=== PATIENT | female | born 1990 | race Caucasian/White ===

== ENCOUNTER 2017-01-15 22:37 | Emergency (ER) | payer OTHER ==
[2017-01-15 23:05] LABS: Hematocrit 44.4 % (37.0-47.0); Hemoglobin 14.2 gm/dL (12.5-16.0); Mean Cell Volume 92.9 fl (78-100); Mean Corpuscular Hemoglobin 29.7 pg (27-31); Mean Platelet Volume 9.7 fl (6.0-9.5); Neutrophil % 65.6 % (42-75.0); Platelet Count 224 K/mm3 (150-450); Red Blood Count 4.78 M/mm3 (4.2-5.4); Red Cell Distribution Width 14.2 % (11.5-14.0); White Blood Count 10.6 K/mm3 (4.0-10.5)
[2017-01-15 23:28] LABS: ALT 18 U/L (19-67); AST 16 U/L (0-48); Albumin * 4.1 gm/dl (3.4-5.0); Alkaline Phosphatase * 84 U/L (50-170); Anion Gap 12.9 mmol/L (6.8-13.8); BUN/Creatinine Ratio 22.1 (9.0-21.6); Bilirubin, Total 0.1 mg/dL (0.0-1.1); Blood Urea Nitrogen 17 mg/dL (3-23); Ca. Corrected For Albumin 8.7 mg/dL (8.4-10.2); Calcium * 9.1 mg/dL (7.9-10.9); Carbon Dioxide 27.6 mmol/L (24-32.6); Chloride 104 mmol/L (97-106); Glucose * 98 mg/dL (70-110); Potassium 4.5 mmol/L (3.4-4.6); Sodium 140 mmol/L (132-142); TSH * 1.404 uIU/mL (0.358-3.74); Total Protein 7.6 gm/dL (6.2-8.2)
--- NOTE | 2017-01-16 00:08 | ERNOTE ---
Integumentary HPI - General Presenting Symptoms: other Time Seen by Provider: 01/15/17 22:40 Source: patient Exam Limitations: no limitations - Immun/Allergies/Home Medications Immunizations: IMMUNIZATION HX Immunizations Up to Date No History of Influenza Vaccine No Hx Pneumococcal Vaccination No Allergies/Adverse Reactions: Allergies Allergy/AdvReac Type Severity Reaction Status Date / Time diphenhydramine HCl Allergy Unknown Verified 09/17/16 23:04 [From Benadryl] Home Medications: HOME MEDICATIONS Sulfamethoxazole/Trimethoprim [Bactrim Ds] 1 tab PO BID #20 tab 01/16/17 [Last Taken Unknown] - History of Present Illness Narrative: Patient is here for hair loss and skin lesions that she has had for about a month. Her symptoms have gotten progressively worse and she is embarrassed to leave the house. She had similar symptoms a year ago that resolved. She has not been sick otherwise Location: Reports: scalp Quality: Reports: itching, painful - at times Exposure: Reports: no cause identified Review of Systems - Review of Systems Constitutional: Absent: recent illness, fever, chills ENT: Absent: nose congestion, sore throat Respiratory: Absent: shortness of breath Cardiology: Absent: chest pain Gastrointestinal/Abdominal: Absent: nausea, vomiting, abdominal pain Skin: Present: See HPI Neurological: Absent: headache - Patient's Past Medical History Patient History - Medical: No pertinent hx Patient History - Cardiac/Respiratory: No pertinent hx Patient History - Cancer: No Hx of Cancer Patient History - Surgical Procedures: T & A Patient History - Other: None - Family History Father Family History - Cardiac/Respiratory: CHF, COPD - Social History Living Situations: home Abuse History: No History of abuse Psych History: No pertinent hx Smoking Status: Current every day smoker Alcohol Use: none Drug Use: none - Immunizations Immunizations Up to Date: No Hx Pneumococcal Vaccination: No History of Influenza Vaccine: No Physical Exam - Physical Exam General Appearance: Present: wd/wn, alert, no apparent distress, anxious Eye Exam: Normal inspection: bilateral, PERRL: bilateral Ears, Nose, Throat: Present: normal ENT inspection, other - diffuse hairloss with some regrowth of shorter hair, most pronounced on to of head, few inflamed nodular lesion mainly on anterior hairline Neck: Present: other - normal thyroid. Absent: lymphadenopathy (R), lymphadenopathy (L) Respiratory: Present: no respiratory distress, normal breath sounds, no accessory muscle use, lungs clear Cardiovascular/Chest: Present: regular rate, rhythm, no murmur Neurological Exam: Present: alert, oriented, normal mood/affect Skin Exam: Present: normal color, warm/dry ED Progress - Results and Orders Patient's Lab Results:: I have reviewed the patient's lab results. - Vital Signs Patient's Vital Signs:: I have reviewed the patient's vital signs. 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
[2017-01-16 00:11] VITALS: BP 110/68
== END 2017-01-16 00:09 | disposition home or self-care (01) ==
LOC: ER 22:37
DX: L65.9 Nonscarring hair loss, unspecified (principal); Z72.0 Tobacco use

== ENCOUNTER 2019-06-23 15:50 | Inpatient (IN) ==
[2019-06-24] MEDS ORDERED: MISOPROSTOL 100 MCG TABLET VG PRN (13:53)
[2019-06-24] MEDS ORDERED: ONDANSETRON 4 MG TAB.RAPDIS PO PRN (13:53)
[2019-06-24] MEDS ORDERED: RINGER'S SOLUTION,LACTATED 1,000 ML IV ONE (13:53)
[2019-06-24] MEDS ORDERED: OXYTOCIN/DEXTROSE 5%-WATER 30 UNITS/500 ML BAG IV ONE ×2 (13:53→23:32)
[2019-06-24] MEDS: DEXTROSE 5%-LACTATED RINGERS 1,000 ML IV PRN ×2 (14:35→18:58)
[2019-06-24 15:08] LABS: Cocaine Ur Negative (NEGATIVE); Urine Barbiturate Negative (NEGATIVE); Urine Benzodiazepines Negative (NEGATIVE); Urine Opiates Negative (NEGATIVE); Urine PCP Negative (NEGATIVE); Urine THC Negative (NEGATIVE)
[2019-06-24] MEDS ORDERED: ONDANSETRON HCL/PF 2 MG/ML VIAL IV PRN (17:08)
[2019-06-24] MEDS ORDERED: NALOXONE HCL 1 MG/1 ML SYRG IV PRN (17:08)
[2019-06-24] MEDS ORDERED: BUPIVACAINE HCL/0.9 % NACL/PF 250 ML EP PRN (17:08)
[2019-06-24] MEDS ORDERED: BUPIVACAINE HCL/PF 30 ML VIAL EP SCH (17:15)
--- NOTE | 2019-06-24 17:36 | HP ---
Chief Complaint - Chief Complaint Date of Service: 06/24/19 Time of Service: 17:24 Chief Complaint: induction of labor for h/o IUGR History of Present Illness: 28 yo at 39 1/7 weeks here for induction of labor due to history of IUGR baby. This complicated by trichomonas infection (1st trimester), anemia, smoker, h/o IUGR baby. Rh positive Rubella immune GBS negative Medical History (Updated 12/27/18 @ 09:10 by Amari Garcia RN) Tobacco abuse counseling (Acute) counseled 12/26/18 Tobacco abuse (Chronic) 1 ppd 12/26/18 Anemia Onset Date: Unknown w/-12/26/18 Trichomoniasis Onset Date: 12/26/18 Body piercing Onset Date: ~1999 Hypoglycemia Onset Date: Unknown Tobacco abuse Onset Date: 01/30/14 Wears glasses Onset Date: Unknown IUGR (intrauterine growth restriction) Onset Date: ~2011 Surgical History: Surgical History (Updated 12/26/18 @ 15:19 by Aroldo Blanchard DO) History of tonsillectomy Onset Date: Unknown [place] teeth extracted Onset Date: Unknown Family History: Family History (Updated 12/26/18 @ 13:33 by Amari Garcia RN) Mother Medical history unknown Father Hypertension COPD (chronic obstructive pulmonary disease) Grandfather Cancer skin Hypertension Grandfather Cancer Lung-former smoker COPD (chronic obstructive pulmonary disease) Grandmother Cancer skin Hyperlipemia Grandmother Diabetes Social History: (Last Reviewed 06/24/19 @ 17:30 by Aroldo Blanchard DO) Social History: adopted: No fdc: No Marital status: household members: significant other number of children: 4 current occupational status: employed current occupation: [employer] current occupational exposures/hazards: No Highest education level completed: GED or equivalent Sexually Active: Yes Service: No Tobacco: Smoking Status: Current every day smoker tobacco type: cigarettes Smoking cigarettes per day: 20.0 Smoking packs per day: 1 Alcohol: alcohol intake: never Substance Use: substance use type: does not use Dietary Habits: caffeine: Yes caffeine comment: 20oz daily Type: carbonated beverages Exercise: Physical activity type: walking frequency: 3-4 times per week Citlali/Gnosticist: agree to transfusion: Yes Review Of Systems (GEN) - Review of Systems Generalized/Overall Review: Present: No Symptoms Reported EENTM: Present: No Symptoms Reported Respiratory: Present: No Symptoms Reported Cardiac: Present: No Symptoms Reported Abdominal: Present: No Symptoms Reported Genitourinary: Present: No Symptoms Reported Musculoskeletal: Present: No Symptoms Reported Neurological: Present: No Symptoms Reported Skin: Present: No Symptoms Reported Endocrine: Present: No Symptoms Reported Immunizations: IMMUNIZATION HX Immunizations Up to Date No History of Influenza Vaccine No Hx Pneumococcal Vaccination No Allergies/Adverse Reactions: Allergies Allergy/AdvReac Type Severity Reaction Status Date / Time diphenhydramine HCl Allergy Unknown Verified 06/24/19 13:40 [From Benadryl] Home Medications: HOME MEDICATIONS NK 06/03/19 [Last Taken Unknown] Exam - Exam Vital Signs: Vital Signs - Last Taken Temp 36.6 C 06/24/19 16:18 Pulse 84 06/24/19 16:18 Resp 16 06/24/19 16:18 BP 106/66 06/24/19 16:18 Pulse Ox 98 06/24/19 16:18 Constitutional: Present: Alert, Oriented x3, Cooperative, No distress ENT Exam: Present: hearing grossly normal Neck: Present: non-tender, trachea midline. Absent: thyromegaly Breasts: Present: Exam deferred Respiratory: Present: lungs clear, no respiratory distress Cardiovascular/Chest: Present: regular rate, rhythm, no edema Abdomen: Present: soft, nontender, no rebound tenderness /Rectal: Present: Other - cervix 2/75/-2 Extremity: Present: no pedal edema, no calf tenderness Skin Exam: Present: normal color, warm/dry, no cyanosis Lymphatic: Present: no adenopathy Neurologic: Present: alert, normal mood/affect, oriented x 3 Appearance: Present: appropriate appearance, appropriate insight Eye contact: Present: cooperative, good eye contact Thoughts: Present: normal thought pattern Diagnostic Studies: Laboratory Results Negative (NEGATIVE) 06/24/19 14:15 Negative (NEGATIVE) 06/24/19 14:15 Ur Phencyclidine Scrn Negative (NEGATIVE) 06/24/19 14:15 Urine Amphetamine Negative (NEGATIVE) 06/24/19 14:15 U Benzodiazepines Scrn Negative (NEGATIVE) 06/24/19 14:15 Negative (NEGATIVE) 06/24/19 14:15 Negative (NEGATIVE) 06/24/19 14:15 NST reactive Assessment/Plan - Assessment/Plan (1) Encounter for induction of labor Assessment: Admit for induction of labor. Epidural PRN. Problem: Acute (2) History of prior with IUGR Problem: Acute (3) Anemia Problem: Acute Qualifiers: Anemia type: iron deficiency Iron deficiency anemia type: inadequate dietary iron intake Qualified Code(s): D50.8 - Other iron deficiency anemias (4) Tobacco abuse Problem: Chronic
--- NOTE | 2019-06-24 17:38 | PN ---
Progess Note - Interim Date: 06/24/19 Time: 17:36 Narrative: 06/24/19 17:36 Patient becoming more uncomfortable with contractions Vitals stable Pitocin at 6 mu/min Ctxs 2 2-3 min Cervix 3-4/75/-2, AROM - clear fluid Impression: 39 1/7 wk IUP, h/o IUGR Plan: Epidural PRN. Continue present plan.
[2019-06-24] MEDS ORDERED: LIDOCAINE HCL/EPINEPHRINE 20 ML VIAL IJ ONE ×2 (18:00→18:20)
--- NOTE | 2019-06-24 18:07 | ANES ---
Anesthesia Pre Procedure Eval Vitals/Labs: Last Vital Signs Temp 36.6 C 06/24/19 16:18 Pulse 84 06/24/19 16:18 Resp 16 06/24/19 16:18 BP 106/66 06/24/19 16:18 Pulse Ox 98 06/24/19 16:18 HOME MEDICATIONS NK 06/03/19 [Last Taken Unknown] Allergies/Adverse Reactions: Allergies Allergy/AdvReac Type Severity Reaction Status Date / Time diphenhydramine HCl Allergy Unknown Verified 06/24/19 13:40 [From Benadryl] - Planned Procedure Planned Procedure: Labor epidural Medication List Reviewed:: Yes Allergies Verified: Yes Medical History (Updated 06/24/19 @ 17:36 by Aroldo Blanchard DO) Tobacco abuse counseling (Acute) counseled 12/26/18 Tobacco abuse (Chronic) 1 ppd 12/26/18 Anemia Onset Date: Unknown w/-12/26/18 Trichomoniasis Onset Date: 12/26/18 Body piercing Onset Date: ~1999 Hypoglycemia Onset Date: Unknown Tobacco abuse Onset Date: 01/30/14 Wears glasses Onset Date: Unknown IUGR (intrauterine growth restriction) Onset Date: ~2011 Surgical History (Updated 06/24/19 @ 17:36 by Aroldo Blanchard DO) History of tonsillectomy Onset Date: Unknown [place] teeth extracted Onset Date: Unknown Family History (Updated 12/26/18 @ 13:33 by Amari Garcia RN) Mother Medical history unknown Father Hypertension COPD (chronic obstructive pulmonary disease) Grandfather Cancer skin Hypertension Grandfather Cancer Lung-former smoker COPD (chronic obstructive pulmonary disease) Grandmother Cancer skin Hyperlipemia Grandmother Diabetes - Cardiovascular Tolerate Activity: Good Heart Sounds: S1 & S2, Regular - Anesthesia Assessment and Plan ASA Class: PS, II Anesthesia Type Plan: Epidural
[2019-06-24] MEDS ORDERED: LIDOCAINE HCL/EPINEPHRINE 20 ML VIAL ONE (18:10)
--- NOTE | 2019-06-24 18:29 | ANES ---
Anesthesia Procedure Note Procedure Note: ANESTHESIA PROCEDURE NOTE Date of Procedure: 06/24/2019. Time of procedure: 1814. Performed by: Fredy Harry CRNA Mortgage Processor: None. Preprocedure diagnosis: Active labor. Post procedure diagnosis: Same. Procedure: Insertion of labor epidural. Indications: The patient is a 28-year-old female in active labor requesting labor epidural for pain management. Findings: See below. Details of the procedure: The patient was placed in a sitting position. DuraPrep as well as Betadine swabs X3 was applied to the patient's back. Patient was then draped in a sterile fashion. Lidocaine 1% was infiltrated to the skin and subcutaneous tissues at the level of the L3-4 interspace. The epidural space was identified using a 18-gauge Tuohy needle with [id number] technique. Epidural catheter was inserted to a depth of 10 centimeters at skin. Negative test dose was elicited using 3 mL of 1.5% preservative-free lidocaine plus epinephrine 1 200,000. The epidural catheter was then taped and secured in place. A loading dose of 8 mL of 0.25% preservative-free bupivacaine was administered to the epidural catheter after negative aspiration for blood and CSF. EBL: Minimal. Fluids: N/A. Specimen: N/A. Post procedure condition: The patient tolerated the procedure well. No complications were noted. Thank you for this consultation. Fredy Harry CRNA
--- NOTE | 2019-06-24 18:30 | ANES ---
Post Anesthesia Assessment - Vital Signs Vitals: Last Vital Signs Temp 36.7 C 06/24/19 18:24 Pulse 65 06/24/19 18:24 Resp 18 06/24/19 18:24 BP 110/69 06/24/19 18:24 Pulse Ox 100 06/24/19 18:24 Airway Patency: Normal - Mental Status Level Of Consciousness: Awake - N/V Assessment Nausea/Vomiting Presence: None Dehydration:: No
--- NOTE | 2019-06-24 22:10 | PN ---
Progess Note - Interim Date: 06/24/19 Time: 22:08 Narrative: 06/24/19 22:08 Patient comfortable with epidural Vital signs stable. Pitocin at 10 mu/min. FHT: 120 baseline, reassuring contractions q 2-3 min Cervix: 6-7/70/-2 Impression: Intrauterine at 39 1/7 weeks induction of labor for history of IUGR Plan: Anticipate normal spontaneous vaginal delivery soon
[2019-06-24] MEDS ORDERED: GLYCERIN/WITCH HAZEL LEAF 40 APPL BOX TP PRN (23:32)
[2019-06-24] MEDS ORDERED: HYDROCORTISONE 30 APPL TUBE TP PRN (23:32)
[2019-06-24] MEDS ORDERED: BISACODYL 10 MG SUPP.RECT RC PRN (23:32)
[2019-06-24] MEDS ORDERED: BENZOCAINE/MENTHOL 81 SPRAY CAN TP PRN (23:32)
[2019-06-24] MEDS ORDERED: IBUPROFEN 800 MG TABLET PO PRN (23:32)
[2019-06-24] MEDS ORDERED: SENNOSIDES 8.6 MG TABLET PO PRN (23:32)
--- NOTE | 2019-06-24 23:34 | OR ---
Operative Report - Dictated Report Narrative: Spontaneous vaginal delivery of vigorously crying viable male at 2320 on 06/24/2019 with Apgars 9 and 9, weighing 3320 g in KIARA position with hand at chin. Cord clamping delayed approximately 1 minute Placenta delivered complete, intact, with three vessel cord Estimated blood loss: Less than 50 ml Anesthesia: Epidural Lacerations: None History for MU History for Definition: * The number of deliveries resulting in a live the patient experienced prior to current hospitalization * The previous delivery of live twins or any live multiple gestation is considered one live event. *If primagravida or nulliparous is documented select zero for the number of previous live births. Live Events: Live Events: 4
[2019-06-25] MEDS: IBUPROFEN 800 MG TABLET PO PRN ×3 (00:02→16:51)
[2019-06-25] MEDS: oxyCODONE HCL/ACETAMINOPHEN 1 TAB TABLET PO PRN ×4 (03:44→23:00)
--- NOTE | 2019-06-25 09:11 | PN ---
Subjective - Date and Time Seen Date: 06/25/19 Time: 09:11 Objective - Vitals Vitals: Last Vital Signs Temp 36.7 C 06/25/19 07:29 Pulse 67 06/25/19 07:29 Resp 18 06/25/19 07:29 BP 119/76 06/25/19 07:29 Pulse Ox 98 06/25/19 07:29 Patient denies complaints. Lochia wnl abdomen - soft, nontender Uterus -firm, at umbilicus - 1 no calf tenderness Impression: day #1 - s/p spontaneous vaginal delivery. Plan: Continue routine care Cauti Physician Documentation - Urinary Catheter Management Urethral (Murphy) Date of Insertion: 06/24/19 Time of Insertion: 19:16 Date of Removal: 06/24/19 Time of Removal: 23:15 Assessment/Plan - Problems/Diagnosis (1) Encounter for induction of labor Problem: Acute (2) History of prior with IUGR Problem: Acute (3) Anemia Problem: Acute Qualifiers: Anemia type: iron deficiency Iron deficiency anemia type: inadequate dietary iron intake Qualified Code(s): D50.8 - Other iron deficiency anemias (4) Tobacco abuse Problem: Chronic
[2019-06-25] MEDS: DOCUSATE SODIUM 100 MG CAPSULE PO SCH ×2 (09:14→21:19)
[2019-06-26] MEDS: IBUPROFEN 800 MG TABLET PO PRN ×2 (01:41→10:08)
[2019-06-26] MEDS: oxyCODONE HCL/ACETAMINOPHEN 1 TAB TABLET PO PRN ×2 (06:44→10:08)
[2019-06-26] MEDS: DOCUSATE SODIUM 100 MG CAPSULE PO SCH ×2 (06:44→08:24)
[2019-06-26 08:22] VITALS: BP 133/70
--- NOTE | 2019-06-26 11:26 | PN ---
Subjective - Date and Time Seen Date: 06/26/19 Time: 11:25 Objective - Vitals Vitals: Last Vital Signs Temp 36.3 C 06/26/19 08:16 Pulse 60 06/26/19 08:16 Resp 18 06/26/19 08:16 BP 133/70 06/26/19 08:16 Pulse Ox 99 06/26/19 08:16 Patient denies complaints. Bottlefeeding. Lochia wnl abdomen - soft, nontender Uterus -firm, at umbilicus - 2 no calf tenderness Impression: day #2 - s/p spontaneous vaginal delivery. Plan: Routine discharge instructions Cauti Physician Documentation - Urinary Catheter Management Urethral (Murphy) Date of Insertion: 06/24/19 Time of Insertion: 19:16 Date of Removal: 06/24/19 Time of Removal: 23:15 Assessment/Plan - Problems/Diagnosis (1) Encounter for induction of labor Problem: Acute (2) History of prior with IUGR Problem: Acute (3) Anemia Problem: Acute Qualifiers: Anemia type: iron deficiency Iron deficiency anemia type: inadequate dietary iron intake Qualified Code(s): D50.8 - Other iron deficiency anemias (4) Tobacco abuse Problem: Chronic
== END 2019-06-26 12:35 | disposition home or self-care (01) | DRG 806 ==
LOC: OB 06-24 13:36
PROVIDERS: ADMIT Obstetrics & Gynecology; ATTEND Obstetrics & Gynecology
CPT/HCPCS: 59025; 80307

== ENCOUNTER 2020-07-27 10:07 | Inpatient (IN) ==
[2020-07-27] MEDS ORDERED: LIDOCAINE HCL 50 ML VIAL PERI PRN (10:11)
[2020-07-27] MEDS ORDERED: RINGER'S SOLUTION,LACTATED 1,000 ML IV ONE (10:11)
[2020-07-27] MEDS ORDERED: BUTORPHANOL TARTRATE 2 MG/ML VIAL IV PRN ×2 (10:11)
[2020-07-27] MEDS ORDERED: ONDANSETRON 4 MG TAB.RAPDIS PO PRN (10:11)
[2020-07-27] MEDS ORDERED: PENICILLIN G POTASSIUM 5 MILLIONUNT in DEXTROSE 5 % IN WATER 100 ML IV ONE ×2 (10:11)
[2020-07-27] MEDS ORDERED: OXYTOCIN/0.9 % SODIUM CHLORIDE 30 UNITS/500 ML BAG IV ONE ×2 (10:11→15:27)
[2020-07-27] MEDS: RINGER'S SOLUTION,LACTATED 1,000 ML IV PRN ×2 (11:04→13:47)
[2020-07-27 13:06] LABS: Urine Barbiturate Negative (NEGATIVE); Urine Benzodiazepines Negative (NEGATIVE)
[2020-07-27 13:08] LABS: Cocaine Ur Negative (NEGATIVE); Urine Opiates Negative (NEGATIVE); Urine PCP Negative (NEGATIVE); Urine THC Negative (NEGATIVE)
--- NOTE | 2020-07-27 13:27 | HP ---
Chief Complaint - Chief Complaint Date of Service: 07/27/20 Time of Service: 13:21 Chief Complaint: Labor induction History of Present Illness: 29 year old at 38w 5d who was sent to L&D from the office due to late decelerations and an NST that was nonreactive. She reports contractions. She denies vb or lof. Fetus is active. Medical History (Last Reviewed 07/27/20 @ 13:23 by Layne Cormier MD) Anemia affecting (Acute) Onset Date: 06/09/20 Late care affecting in third trimester (Acute) 31w6d Tobacco abuse counseling (Acute) counseled 06/09/20 Tobacco abuse (Chronic) Anemia Onset Date: Unknown w/-12/26/18 Trichomoniasis Onset Date: 12/26/18 Body piercing Onset Date: ~1999 Hypoglycemia Onset Date: Unknown Tobacco abuse Onset Date: 01/30/14 Wears glasses Onset Date: Unknown IUGR (intrauterine growth restriction) Onset Date: ~2011 Surgical History: Surgical History (Last Reviewed 07/27/20 @ 13:23 by Layne Cormier MD) History of tonsillectomy Onset Date: Unknown [place] teeth extracted Onset Date: Unknown Family History: Family History (Last Reviewed 07/27/20 @ 13:23 by Layne Cormier MD) Mother Medical history unknown Father Hypertension COPD (chronic obstructive pulmonary disease) Grandfather Cancer skin Hypertension Grandfather Cancer Lung-former smoker COPD (chronic obstructive pulmonary disease) Grandmother Cancer skin Hyperlipemia Grandmother Diabetes Social History: (Last Reviewed 07/27/20 @ 13:23 by Layne Cormier MD) Social History: adopted: No intermediate: No Marital status: household members: children, other number of children: 4 current occupational status: unemployed Highest education level completed: GED or equivalent Sexually Active: Yes Service: No Tobacco: Smoking Status: Current every day smoker tobacco type: cigarettes Smoking cigarettes per day: 10 Alcohol: alcohol intake: never Substance Use: substance use type: does not use Dietary Habits: caffeine: Yes caffeine comment: 1 every other day Type: carbonated beverages Exercise: Physical activity type: walking frequency: 3-4 times per week Citlali/Moravian: agree to transfusion: Yes Review Of Systems (GEN) - Review of Systems Generalized/Overall Review: Present: No Symptoms Reported Misc: All systems neg except as marked Immunizations: IMMUNIZATION HX Immunizations Up to Date No History of Influenza Vaccine No Hx Pneumococcal Vaccination No Allergies/Adverse Reactions: Allergies Allergy/AdvReac Type Severity Reaction Status Date / Time diphenhydramine HCl Allergy Intermediate Hives Verified 07/27/20 10:16 [From Benadryl] Home Medications: HOME MEDICATIONS NK 06/23/20 [Last Taken Unknown] Exam - Exam Vital Signs: Vital Signs - Last Taken Temp 36.4 C 07/27/20 12:07 Pulse 69 07/27/20 12:07 Resp 18 07/27/20 12:07 BP 118/59 07/27/20 12:07 Pulse Ox 98 07/27/20 12:07 Constitutional: Present: Alert, Oriented x3, Cooperative, No distress ENT Exam: Present: hearing grossly normal Eye Exam: bilateral eye: normal inspection Neck: Present: normal inspection Back Exam: Present: normal inspection Respiratory: Present: lungs clear, normal breath sounds, no respiratory distress Cardiovascular/Chest: Present: regular rate, rhythm Abdomen: Present: soft, nontender, nondistended /Rectal: Present: Other - cvx 5-6/50/-3 AROM for clear fluid Extremity: Present: non-tender, no calf tenderness Skin Exam: Present: normal color, warm/dry, no cyanosis Neurologic: Present: alert, normal mood/affect, oriented x 3 Appearance: Present: appropriate appearance, appropriate insight, neat, no memory impairment Eye contact: Present: cooperative, good eye contact, normal speech Thoughts: Present: normal thought pattern, no apparent hallucination Diagnostic Studies: Laboratory Results Urine Opiates Screen Negative (NEGATIVE) 07/27/20 10:11 Barbiturate Screen Negative (NEGATIVE) 07/27/20 10:11 Ur Phencyclidine Scrn Negative (NEGATIVE) 07/27/20 10:11 Urine Amphetamine Negative (NEGATIVE) 07/27/20 10:11 U Benzodiazepines Scrn Negative (NEGATIVE) 07/27/20 10:11 Urine Cocaine Screen Negative (NEGATIVE) 07/27/20 10:11 Urine Marijuana (THC) Negative (NEGATIVE) 07/27/20 10:11 Blood Type O Positive 07/27/20 10:30 Antibody Screen Negative 07/27/20 10:30 Assessment/Plan - Narrative Narrative: 29 year old at 38w 5d 1. IOL due to nonreassuring FHT beyond 37 weeks gestation. Favorable cervix. AROM done. Start pitocin if not riki adequately. Epidural PRN 2. GBS positive: PCN prophylaxis - Assessment/Plan (1) Anemia affecting Problem: Acute Qualifiers: Trimester: third trimester (2) Late care affecting in third trimester Problem: Acute (3) History of prior with IUGR Problem: Acute (4) Encounter for induction of labor Problem: Acute (5) Tobacco abuse Problem: Chronic
[2020-07-27] MEDS ORDERED: BUPIVACAINE HCL/0.9 % NACL/PF 250 ML EP PRN (13:51)
[2020-07-27] MEDS ORDERED: ONDANSETRON HCL/PF 2 MG/ML VIAL IV PRN (13:51)
[2020-07-27] MEDS ORDERED: NALOXONE HCL 1 MG/1 ML SYRG IV PRN (13:51)
--- NOTE | 2020-07-27 13:55 | ANES ---
Anesthesia Pre Procedure Eval Vitals/Labs: Last Vital Signs Temp 36.4 C 07/27/20 12:07 Pulse 69 07/27/20 12:07 Resp 18 07/27/20 12:07 BP 118/59 07/27/20 12:07 Pulse Ox 98 07/27/20 12:07 HOME MEDICATIONS NK 06/23/20 [Last Taken Unknown] Allergies/Adverse Reactions: Allergies Allergy/AdvReac Type Severity Reaction Status Date / Time diphenhydramine HCl Allergy Intermediate Hives Verified 07/27/20 10:16 [From Benadryl] - Planned Procedure Planned Procedure: ACTIVE LABOR Medication List Reviewed:: Yes Allergies Verified: Yes Medical History (Last Reviewed 07/27/20 @ 13:54 by Carorll Clark CRNA) Anemia affecting (Acute) Onset Date: 06/09/20 Late care affecting in third trimester (Acute) 31w6d Tobacco abuse counseling (Acute) counseled 06/09/20 Tobacco abuse (Chronic) Anemia Onset Date: Unknown w/-12/26/18 Trichomoniasis Onset Date: 12/26/18 Body piercing Onset Date: ~1999 Hypoglycemia Onset Date: Unknown Tobacco abuse Onset Date: 01/30/14 Wears glasses Onset Date: Unknown IUGR (intrauterine growth restriction) Onset Date: ~2011 Surgical History (Last Reviewed 07/27/20 @ 13:54 by Carroll Clark CRNA) History of tonsillectomy Onset Date: Unknown [place] teeth extracted Onset Date: Unknown Family History (Last Reviewed 07/27/20 @ 13:54 by Carroll Clark CRNA) Mother Medical history unknown Father Hypertension COPD (chronic obstructive pulmonary disease) Grandfather Cancer skin Hypertension Grandfather Cancer Lung-former smoker COPD (chronic obstructive pulmonary disease) Grandmother Cancer skin Hyperlipemia Grandmother Diabetes - Family Anesthesia History Family History:: no untoward family reactions to anesthesia, no familial bleeding tendencies, no family history of clotting disorders, no family history of premature - Airway/Neck/Teeth Teeth Condition: intact Neck Exam: full range of motion Mallampatti Score: 2 Thyromental (T-M) distance: > 6 cm Mandibulo Hyoid distance: > 3 cm - Respiratory Respiratory Physical: lungs clear Smoking Status: Current every day smoker - last ciggarrette on way to L&D Discussed smoking cessation including day of surgery: Yes Sleep Apnea currently treated: No Sleep Apnea by current assessment: No - Cardiovascular Tolerate Activity: Fair Heart Sounds: S1 & S2, Regular - Gastrointestinal NPO since: 2400 - Anesthesia Assessment and Plan ASA Class: PS, II, E Anesthesia Type Plan: Epidural - CSE for labor analgesia
[2020-07-27] MEDS ORDERED: fentaNYL CITRATE/PF 50 MCG/ML AMPUL IT SCH (14:00)
--- NOTE | 2020-07-27 14:18 | ANES ---
Post Anesthesia Discharge - Transfer of Care Transfer of Care handoff given to nurse: Yes - Discharge from PACU Discharge from PACU when meets criteria: Yes - Comfortable post CSE.
--- NOTE | 2020-07-27 14:21 | ANES ---
Anesthesia Procedure Note Procedure Note: ANESTHESIA PROCEDURE NOTE Date of Procedure: 07/27/2020 Time of procedure: 13:50 PM. Performed by: WAYLON Contreras CRNA, MSN Mobile Lab Technician: Cinthya TREJO. Preprocedure diagnosis: Active labor, labor pain. Post procedure diagnosis: Same. Procedure:Epidural for labor analgesia 3 4. Indications: Labor pain. Findings: See below. Details of the procedure: The patient was placed on the side of the bed in sitting positionand prepped with DuraPrep then draped in a sterile fashion. Lidocaine 1% was infiltrated to the skin and subcutaneous tissues at the level of the elbow 3 4 interspace. An 18-gauge Touhy needle was used to approach the epidural space with loss of resistance technique. Once loss of resistance was achieved a 27-gauge spinal needle was passed through the epidural needle and CSF was contacted. After CSF returned, 20 mcg of fentanyl was injected in the spinal needle was removed the epidural catheter was then threaded approximately 4 cm in the epidural needle was removed. The catheter was taped in place and after careful aspiration 3 mL of 1.5% lidocaine with 1-200,000 epinephrine was injected without change in maternal heart rate or sensorium. . EBL: Minimal. Fluids: N/A. Specimen: N/A. Post procedure condition: The patient tolerated the procedure well with [] relief. No complications were noted. Thank you for this consultation. Carroll Clark CRNA, ARNP, MSN
[2020-07-27] MEDS: PENICILLIN G POTASSIUM 2.5 MILLIONUNT in DEXTROSE 5 % IN WATER 100 ML IV SCH ×2 (14:25)
[2020-07-27] MEDS ORDERED: HYDROCORTISONE 30 APPL TUBE TP PRN (15:27)
[2020-07-27] MEDS ORDERED: SENNOSIDES 8.6 MG TABLET PO PRN (15:27)
[2020-07-27] MEDS ORDERED: GLYCERIN/WITCH HAZEL LEAF 40 APPL BOX TP PRN (15:27)
[2020-07-27] MEDS ORDERED: BENZOCAINE/MENTHOL 81 SPRAY CAN TP PRN (15:27)
[2020-07-27] MEDS ORDERED: BISACODYL 10 MG SUPP.RECT RC PRN (15:27)
[2020-07-27] MEDS ORDERED: HYDROcodone/ACETAMINOPHEN 1 EACH TABLET PO PRN (15:27)
--- NOTE | 2020-07-27 15:31 | ANES ---
Post Anesthesia Assessment - Vital Signs Vitals: Last Vital Signs Temp 36.4 C 07/27/20 12:07 Pulse 69 07/27/20 12:07 Resp 18 07/27/20 12:07 BP 118/59 07/27/20 12:07 Pulse Ox 98 07/27/20 12:07 Airway Patency: Normal - Mental Status Level Of Consciousness: Awake, Alert, Appropriate - Pain Level Pain Score: 0 - N/V Assessment Nausea/Vomiting Presence: None Dehydration:: No - Additional Notes Comments:: Did well through delivery.
--- NOTE | 2020-07-27 15:34 | OR ---
Operative Report - Dictated Report Narrative: Date of delivery: 07/27/2020 Time of delivery: 1517 Gender: female weight: 3351 grams APGARS: 8/9 Procedure: Description of the procedure: The patient is a 29 year old at 38w 5d who underwent labor induction with AROM due to NRFHT. She did not require oxytocin administration prior to delivery. She progressed to complete dilation. She delivered a viable female infant in direct OA presentation. A loose nuchal cord was noted. The shoulders delivered without any difficulty followed by the rest of the . The nuchal cord was reduced after delivery. Cord clamping was delayed for 60 seconds due to vigorous infant. The cord was clamped and cut. Cord blood was collected. The placenta delivered by expression and appeared intact. There were no lacerations. EBL: 100 mL Complications: none Specimens: cord blood History for MU Definition: * The number of deliveries resulting in a live the patient experienced prior to current hospitalization * The previous delivery of live twins or any live multiple gestation is considered one live event. *If primagravida or nulliparous is documented select zero for the number of previous live births. Live Events: 5
[2020-07-27] MEDS: HYDROcodone/ACETAMINOPHEN 1 EACH TABLET PO PRN ×2 (19:55→23:10)
[2020-07-27] MEDS: IBUPROFEN 800 MG TABLET PO PRN (19:55)
[2020-07-28] MEDS: DOCUSATE SODIUM 100 MG CAPSULE PO SCH ×3 (04:17→21:21)
[2020-07-28] MEDS: HYDROcodone/ACETAMINOPHEN 1 EACH TABLET PO PRN ×3 (06:58→17:39)
[2020-07-28] MEDS: IBUPROFEN 800 MG TABLET PO PRN ×2 (06:58→17:39)
--- NOTE | 2020-07-28 08:45 | PN ---
Subjective - Date and Time Seen Date: 07/28/20 Time: 08:43 Subjective Narrative: Patient without complaints Objective Objective Narrative: See vital signs - Review of Systems Generalized/Overall Review: Reports: No Symptoms Reported Misc: All systems neg except as marked - Vitals Vitals: Last Vital Signs Temp 36.4 C 07/28/20 07:21 Pulse 68 07/28/20 07:21 Resp 18 07/28/20 07:21 BP 138/87 07/28/20 07:21 Pulse Ox 100 07/27/20 20:50 - Exam Constitutional: Present: Alert, Oriented x3, Cooperative, No distress ENT Exam: Present: hearing grossly normal Neck: Present: normal inspection Respiratory: Present: lungs clear, normal breath sounds, no respiratory distress Cardiovascular/Chest: Present: regular rate, rhythm Extremity: Present: non-tender, no calf tenderness Skin Exam: Present: normal color, warm/dry, no cyanosis Neurologic: Present: alert, normal mood/affect, oriented x 3 Appearance: Present: appropriate appearance, appropriate insight, neat, no memory impairment Eye contact: Present: cooperative, good eye contact, normal speech Thoughts: Present: normal thought pattern Cauti Physician Documentation - Urinary Catheter Management Urethral (Murphy) Urethral Indwelling: No Date of Insertion: 07/27/20 Time of Insertion: 14:30 Date of Removal: 07/27/20 Time of Removal: 15:10 Assessment/Plan Plan Narrative: PPD 1 s/p Doing well Patient requests PP salpingectomy. Procedure arranged for noon tomorrow. NPO after midnight Discharge tomorrow - Problems/Diagnosis (1) Anemia affecting Problem: Acute Qualifiers: Trimester: third trimester (2) Late care affecting in third trimester Problem: Acute (3) History of prior with IUGR Problem: Acute (4) Encounter for induction of labor Problem: Acute (5) Tobacco abuse Problem: Chronic
[2020-07-29] MEDS: HYDROcodone/ACETAMINOPHEN 1 EACH TABLET PO PRN ×2 (00:06→06:45)
[2020-07-29] MEDS: IBUPROFEN 800 MG TABLET PO PRN ×2 (00:06→06:46)
[2020-07-29] MEDS ORDERED: RINGER'S SOLUTION,LACTATED 1,000 ML IV PRN (06:00)
[2020-07-29] MEDS ORDERED: ceFAZolin SODIUM 1 GM VIAL IV PRN (06:00)
--- NOTE | 2020-07-29 07:32 | ANES ---
Anesthesia Pre Procedure Eval Vitals/Labs: Last Vital Signs Temp 36.5 C 07/29/20 06:57 Pulse 80 07/29/20 06:57 Resp 18 07/29/20 06:57 BP 112/77 07/29/20 06:57 Pulse Ox 97 07/29/20 06:57 HOME MEDICATIONS NK 06/23/20 [Last Taken Unknown] HYDROcodone/ACETAMINOPHEN [[place] 5-325] 1 ea PO Q6H PRN 5 Days #10 tab 07/29/20 [Last Taken Unknown] Allergies/Adverse Reactions: Allergies Allergy/AdvReac Type Severity Reaction Status Date / Time diphenhydramine HCl Allergy Intermediate Hives Verified 07/27/20 10:16 [From Benadryl] - Planned Procedure Planned Procedure: paula salpingectomy Medication List Reviewed:: Yes Allergies Verified: Yes Medical History (Last Reviewed 07/29/20 @ 07:31 by Kvng Amaya CRNA) Anemia affecting (Acute) Onset Date: 06/09/20 Late care affecting in third trimester (Acute) 31w6d Tobacco abuse counseling (Acute) counseled 06/09/20 Tobacco abuse (Chronic) Anemia Onset Date: Unknown w/-12/26/18 Trichomoniasis Onset Date: 12/26/18 Body piercing Onset Date: ~1999 Hypoglycemia Onset Date: Unknown Tobacco abuse Onset Date: 01/30/14 Wears glasses Onset Date: Unknown IUGR (intrauterine growth restriction) Onset Date: ~2011 Surgical History (Last Reviewed 07/29/20 @ 07:31 by Kvng Amaya CRNA) History of tonsillectomy Onset Date: Unknown [place] teeth extracted Onset Date: Unknown Family History (Last Reviewed 07/29/20 @ 07:31 by Kvng Amaya CRNA) Mother Medical history unknown Father Hypertension COPD (chronic obstructive pulmonary disease) Grandfather Cancer skin Hypertension Grandfather Cancer Lung-former smoker COPD (chronic obstructive pulmonary disease) Grandmother Cancer skin Hyperlipemia Grandmother Diabetes - Family Anesthesia History Family History:: no untoward family reactions to anesthesia - Airway/Neck/Teeth Within Normal Limits:: Yes Teeth Condition: intact Neck Exam: full range of motion Mallampatti Score: 2 Thyromental (T-M) distance: > 6 cm Mandibulo Hyoid distance: > 3 cm - Respiratory Respiratory Physical: lungs clear Smoking Status: Current every day smoker Discussed smoking cessation including day of surgery: Yes - Cardiovascular Tolerate Activity: Good Heart Sounds: S1 & S2, Regular - Gastrointestinal NPO since: MN - Anesthesia Assessment and Plan ASA Class: PS, II Anesthesia Type Plan: General ET Planned difficult intubation/equipment available: No
--- NOTE | 2020-07-29 07:40 | PN ---
Subjective - Date and Time Seen Date: 07/29/20 Time: 07:38 Subjective Narrative: Patient without complaints Objective Objective Narrative: See vital signs - Review of Systems Generalized/Overall Review: Reports: No Symptoms Reported Misc: All systems neg except as marked - Vitals Vitals: Last Vital Signs Temp 36.5 C 07/29/20 06:57 Pulse 80 07/29/20 06:57 Resp 18 07/29/20 06:57 BP 112/77 07/29/20 06:57 Pulse Ox 97 07/29/20 06:57 - Exam Constitutional: Present: Alert, Oriented x3, Cooperative ENT Exam: Present: hearing grossly normal Neck: Present: normal inspection Abdomen: Present: soft, nontender, nondistended Extremity: Present: non-tender, no calf tenderness Skin Exam: Present: normal color, warm/dry, no cyanosis Neurologic: Present: alert, normal mood/affect, oriented x 3 Appearance: Present: appropriate appearance, appropriate insight, neat, no memory impairment Eye contact: Present: cooperative, good eye contact, normal speech Thoughts: Present: normal thought pattern Cauti Physician Documentation - Urinary Catheter Management Urethral (Murphy) Urethral Indwelling: No Date of Insertion: 07/27/20 Time of Insertion: 14:30 Date of Removal: 07/27/20 Time of Removal: 15:10 Assessment/Plan Plan Narrative: PPD 2 s/p Doing well For salpingectomy this afternoon per patient request Follow-up in 2 weeks for an incision check and in 6 weeks for PP visit - Problems/Diagnosis (1) Anemia affecting Problem: Acute Qualifiers: Trimester: third trimester (2) Late care affecting in third trimester Problem: Acute (3) History of prior with IUGR Problem: Acute (4) Encounter for induction of labor Problem: Acute (5) Tobacco abuse Problem: Chronic
--- NOTE | 2020-07-29 07:43 | DS ---
OB Discharge Summary (1) Anemia affecting Status: Acute Qualifiers: Trimester: third trimester (2) Late care affecting in third trimester Status: Acute (3) History of prior with IUGR Status: Acute (4) Encounter for induction of labor Status: Acute (5) Tobacco abuse Status: Chronic (6) Encounter for sterilization Status: Acute Delivery Date: 07/27/20 Delivery Time: 15:17 :: 6 Para:: 6 Gestational weeks:: 38 Gestational days:: 5 Intrapartum Procedures: Spontaneous Vaginal Delivery, Anesthesia - Epidural Procedures: None /OP Complications: No Complications Discharge Diagnosis: Term -Delivered, Other - salpingectomy - Discharge Information Discharge Location: Home Disposition: Home self-care Condition: Good Activity on Discharge:: Activity as tolerated, Pelvic Rest, No lifting - greater than 10 pounds for 4 weeks Discharge Diet: General/regular food Prescriptions (Any new or edited meds): HYDROcodone/ACETAMINOPHEN [[place] 5-325] 1 ea PO Q6H PRN 5 Days #10 tab PRN Reason: Moderate Pain (Pain Scale 4-6) Transmission Status: Received by [email or web address] #[id number] Complete Home Medications List: Complete Home Medication List: NK 06/23/20 HYDROcodone/ACETAMINOPHEN [[place] 5-325] 1 ea PO Q6H PRN 5 Days #10 tab 07/29/20 - Plan Discharge to:: Home Comment:: Routine Discharge Instructions Follow up in office in:: 2 weeks - for an incision check - [place] Information Weight (Grams): 3,351 Sex: Female Score 1 min: 8 Score 5 min: 9 Circumcision: Not Applicable Infant Complications: None
[2020-07-29] MEDS ORDERED: ceFAZolin SODIUM 1 GM VIAL ONE (10:15)
[2020-07-29] MEDS ORDERED: LIDOCAINE HCL/EPINEPHRINE 20 ML VIAL IJ ONE ×2 (10:15→11:54)
[2020-07-29] MEDS ORDERED: PROPOFOL VIAL IV ONE (11:12)
[2020-07-29] MEDS ORDERED: KETOROLAC TROMETHAMINE 30 MG/ML VIAL ONE (11:12)
[2020-07-29] MEDS ORDERED: ROCURONIUM BROMIDE 10 MG/ML VIAL ONE (11:12)
[2020-07-29] MEDS ORDERED: ONDANSETRON HCL/PF 2 MG/ML VIAL ONE (11:12)
[2020-07-29] MEDS ORDERED: fentaNYL CITRATE/PF 50 MCG/ML AMPUL ONE (11:12)
[2020-07-29] MEDS ORDERED: SUCCINYLCHOLINE CHLORIDE 20 MG/ML VIAL ONE (11:12)
[2020-07-29] MEDS ORDERED: RINGER'S SOLUTION,LACTATED 1,000 ML IV ONE (11:52)
[2020-07-29] MEDS: DOCUSATE SODIUM 100 MG CAPSULE PO SCH (12:08)
[2020-07-29] MEDS: PENICILLIN G POTASSIUM 2.5 MILLIONUNT in DEXTROSE 5 % IN WATER 100 ML IV SCH ×2 (12:10)
--- NOTE | 2020-07-29 12:36 | ANES ---
Post Anesthesia Discharge - Transfer of Care Transfer of Care handoff given to nurse: Yes - Discharge from PACU Discharge from PACU when meets criteria: Yes
--- NOTE | 2020-07-29 13:25 | OR ---
Operative Report - Dictated Report Narrative: Preoperative diagnosis: desires sterilization Postoperative diagnosis: same Procedure: bilateral salpingectomy via mini laparotomy Surgeon: Dr. Cormier Anesthesia: NATHALIE Anesthesiologist: Shane Amaya CRNA Description of the procedure: The patient was taken to the operating room where general anesthesia was induced. She was then prepped and draped in the lithotomy position in the standard surgical fashion. A curvilinear incision was made inferior to the umbilicus in the umbilical fold. The incision was carried through the subcutaneous tissue. The fascia was incised in the midline and extended. A small Ivan retractor was placed in the abdomen. The left fallopian tube was identified by following it to the fimbriated end. The left fallopian tube was cut along the mesosalpinx. The left fallopian tube was removed in two portions. Hemostasis was adequate. The same procedure was repeated on the right side. Bleeding was noted on the right side. A running suture was placed using 0-vicryl. A second running suture was placed as the first suture pulled right through the uterus. Hemostasis was adequate. The tubal sites were again inspected for hemostasis. Hemostasis was adequate. The fascia was closed with 0-vicryl on a CT-1 needle. The skin was closed with 3-0 monocryl. [place] was placed over the incision. A band aid was placed over the incision. All sponge, lap, and needle counts were correct. The patient tolerated the procedure well. She was transferred to the recovery room in stable condition. EBL: minimal Complications: none Specimens: bilateral fallopian tubes
[2020-07-29 14:08] VITALS: BP 132/80
--- NOTE | 2020-07-29 16:14 | ANES ---
Post Anesthesia Assessment - Vital Signs Vitals: Last Vital Signs Temp 36.3 C 07/29/20 13:00 Pulse 57 L 07/29/20 14:00 Resp 18 07/29/20 14:00 BP 132/80 07/29/20 14:00 Pulse Ox 99 07/29/20 14:00 Airway Patency: Normal - Mental Status Level Of Consciousness: Awake - Pain Level Pain Score: 4 - N/V Assessment Nausea/Vomiting Presence: None Dehydration:: No
== END 2020-07-29 14:10 | disposition home or self-care (01) | DRG 798 ==
LOC: OB 10:07
PROVIDERS: ADMIT Obstetrics & Gynecology; ATTEND Obstetrics & Gynecology